=== PATIENT | male | born 1970 | race Caucasian/White ===

== ENCOUNTER → 2016-07-12 | Day surgery (SDC) | payer BC, OTHER ==
[~2016-07-12] VITALS: Ht 182.9 cm; Wt 107.5 kg
[~2016-07-12] MED LIST: MOBIC15 MG PO; MOBIC7.5 MG PO; PROBIOTIC1 EAC1 PO; SKELAXIN 800 M800 M1 PO; TYLENOL325 MG PO; VITAMIN B-121000 MCG PO; ZYRTEC10 M4 PO
--- NOTE | ~2016-07-12 | O ---
[facility] [place] [address] OPERATIVE REPORT Name: JORGEARIAN Room #: REG [facility]#: [id number] Admission: 07/12/16 Attend Phys: Quinn Lin MD Discharge: Date of : 70 Report #: [id number] THIS REPORT FOR: //name// CC: Matt Lin DATE OF SERVICE: 07/12/2016 PREOPERATIVE DIAGNOSIS: Left lower lid entropion. POSTOPERATIVE DIAGNOSIS: Left lower lid entropion. PROCEDURE: Left lower lid entropion repair. SURGEON: Quinn Lin MD. WIRE COATER: None. ANESTHESIA: Local with IV sedation. COMPLICATIONS: None. 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 He presents today for a left lower lid entropion repair. Informed consent was obtained to include but not limited to the potential risk for loss of vision, bleeding, infection, failure to improve the problem, and the potential need for further surgery or treatment. DESCRIPTION OF PROCEDURE: The patient was taken to the operating room where 2% Xylocaine with epinephrine mixed with equal parts of 0.75% Marcaine with Wydase was administered transconjunctivally and transcutaneously to the left lower lid and cheek. The patient was subsequently prepped and draped in the usual sterile fashion. A transconjunctival incision was then made below the inferior border of the tarsal plate across the width of the lid. Hemostasis was then achieved with monopolar cautery. The lower lid retractors were identified and reattached to the anterior superior surface of the tarsal plate with multiple interrupted mattress 5-0 chromic sutures. The lead was over everted purposefully. The wound was then cleaned and dressed with erythromycin ophthalmic ointment. The [facility] [address] [place] [address] OPERATIVE REPORT Name: SWATHI PATEL Room #: REG [facility].#: [id number] Admission: 07/12/16 Attend Phys: Quinn Lin MD Discharge: Date of : 70 Report #: [id number] patient was subsequently transported to the recovery area having tolerated the procedures well with no anesthetic or operative complications being noted. <ELECTRONICALLY SIGNED> By: Quinn Lin MD 07/19/16 0611 [id number] Quinn Lin MD /nt
[2016-07-12 13:33] VITALS: BP 136/73
== END | disposition home or self-care (01) ==
LOC: OR 05:23
DX: H02.005 Unspecified entropion of left lower eyelid (principal); G47.33 Obstructive sleep apnea (adult) (pediatric); D64.9 Anemia, unspecified
CPT/HCPCS: 50010; 50101; 50386; 50398; 51636; 56531; 62110; 62850; 70005